=== PATIENT | male | born 1945 | race Caucasian/White ===

== ENCOUNTER 2016-07-01 10:43 | Day surgery (SDC) | payer MEDICARE, OTHER ==
[2016-07-01] VITALS (10 sets, daily range): BP systolic 100–143; BP diastolic 56–74; PULSE 42–79; RESP 14–23; TEMP 97.2–97.6; O2SAT 95–100; Ht 168.9 cm; Wt 78.3 kg
[~2016-07-01] VITALS: Ht 168.9 cm; Wt 78.3 kg
[~2016-07-01 10:43] MED LIST: ASPI-730 PO; ATOR40TA20 PO; CEFAZOLIN 1 GRAM INJECTION IV ONE; FENO160T6 PO; FINA5TAB40 PO; HYDR-4009 PO; LIDOCAINE 1% (10mg/ml) 2ml SDV INJ ONE; METO25TA6 PO; MULT1CAP34 PO; NITR0.4T38 SL; NORMAL SALINE 1,000 ML IV ONE; NYST10007 TP; POTA20TA87 PO; SILD50TA PO; TRIA15CR3 TOP; VITA100T5
--- OUTSIDE RECORDS SUMMARY | 2016-07-01 10:48 | XMS REPORT | Referral Summary ---
Author Author [facility], [facility] Care Organization [facility] Address Unknown Phone Unavailable Care Team Providers Care Pool Technician Name Role Phone Deena Juárez Primary Care Physician [phone] Encounter VC Date(s): 08/08/15 - 08/08/15 [facility], [address] [place] [id number] Discharge Disposition: 01-Home or Self Care Attending Physician: Yoni Valdez PA-C Admitting Physician: Yoni Valdez PA-C Vital Signs Most recent to 1 oldest [Reference Range]: Temperature Tympanic 36.3 degC [36.6-38.1 degC] *LOW* (08/08/15 2:40 PM) Peripheral Pulse 55 bpm Rate [60-100 bpm] *LOW* (08/08/15 2:40 PM) Blood Pressure 138/78 mmHg [90-140/60-90 mmHg] (08/08/15 2:40 PM) SpO2 98 % (08/08/15 2:40 PM) Problem List Condition Effective Dates Status Health Status Informant 2 Vessel BUTLER to 1995 Resolved LAD(Confirmed) Allergic rhinitis Active (disorder)(Confirmed ) Allergic Resolved rhinitis(Confirmed) Allergies(Confirmed) Resolved Anxiety state Active (finding)(Confirmed) Anxiety(Confirmed)1 Resolved Atrial Active fibrillation(Confirm ed) Benign prostatic Resolved hypertrophy(Confirme d) Bilat shoulder Resolved tendonitis(Confirmed ) Blood clots in Resolved urine(Confirmed) Chronic kidney Active disease stage 3 (disorder)(Confirmed ) CKD 3(Confirmed) Resolved Coronary Active arteriosclerosis (disorder)(Confirmed ) Coronary artery Resolved disease(Confirmed)2 Generalized Active osteoarthritis (disorder)(Confirmed ) Depression(Confirmed Resolved ) Depression(Confirmed Active ) Dyslipidemia(Confirm Resolved ed) Erectile Resolved dysfunction(Confirme d) Gastroesophageal Active reflux disease (disorder)(Confirmed ) GERD(Confirmed) Resolved Hay fever(Confirmed) Resolved High Resolved cholesterol(Confirme d) High Resolved trygylcerides(Confir med) Hyperlipidemia(Confi Active rmed) Hyperlipidemia(Confi Resolved rmed) Hypertrophic Resolved polyps(Confirmed) Erectile Active dysfunction(Confirme d) Impotence of organic Active origin (disorder)(Confirmed ) OA Active (osteoarthritis)(Con firmed) Osteoarthritis Resolved hands(Confirmed) preDM (fasting 07/26/10 Resolved hypergylcemia)(Confi rmed) Prostatism(Confirmed Resolved ) Renal Resolved disease(Confirmed) Renal Resolved insufficiency(Confir med) Shoulder Active tendinitis(Confirmed ) 1Hospitalization- at [place] 2Dr. Reuss S/P AMI Allergies, Adverse Reactions, Alerts No Known Allergies Medications aspirin 325 mg oral tablet 1 tabs, Oral, Daily, 0 Refill(s) Start Date: 09/21/13 Status: Ordered finasteride 5 mg oral tablet 5 mg 1 tabs, Oral, Daily, # 90 tabs, 4 Refill(s), Pharmacy: [facility], 1 tabs Oral Daily Start Date: 11/18/14 Status: Ordered glucosamine 1 tabs, Oral, Daily, 0 Refill(s) Start Date: 09/21/13 Status: Ordered Lipitor 40 mg oral tablet 40 mg 1 tabs, Oral, Bedtime (once a day), fax to [facility], # 90 tabs, 3 Refill( s), [facility]: [facility], 1 tabs Oral Bedtime (once a day),Instr:fax to [facility] Start Date: 04/19/15 Status: Ordered meloxicam 15 mg oral tablet 15 mg 1 tabs, Oral, Daily, # 30 tabs, 0 Refill(s), Pharmacy: [id number], 1 tabs Oral Daily Start Date: 07/26/15 Status: Ordered multivitamin Daily, 0 Refill(s) Start Date: 09/22/13 Status: Ordered nitroglycerin 0.4 mg sublingual tablet 1 tabs, SubLingual, q5min, as needed for chest pain, # 100 tabs, 0 Refill(s) Start Date: 09/21/13 Status: Ordered nystatin 100,000 units/g topical powder 1 linda, Topical, BID, # 15 g, 1 Refill(s), [facility]acy: [facility] Start Date: 12/05/14 Stop Date: 12/06/15 Status: Ordered Prevident linda, Topical, Bedtime (once a day), 0 Refill(s) Start Date: 09/22/13 Status: Ordered triamcinolone 0.1% topical cream 1 linda, Topical, BID, # 30 g, 2 Refill(s), [facility]acy: [facility] Start Date: 10/05/14 Status: Ordered Triglide 160 mg oral tablet 160 mg 1 tabs, Oral, Daily, # 90 tabs, 3 Refill(s), [facility]acy: [facility], 1 tabs Oral Daily,x90 days Start Date: 04/19/15 Stop Date: 04/13/16 Status: Ordered Viagra 50 mg oral tablet See Instructions, take one tablet as needed 1 hour before sexual activity, # 18 tabs, 2 Refill(s), [facility]acy: [facility], take one tablet as needed ; 1 hour before sexual activity Start Date: 07/14/15 Status: Ordered Results No data available for this section Immunizations Vaccine Date Refusal Reason tetanus/diphth/pertuss (Tdap) adult/adol 09/16/12 hepatitis A-hepatitis B vaccine 10/07/07 hepatitis A-hepatitis B vaccine 02/27/01 hepatitis A-hepatitis B vaccine 06/25/00 hepatitis B pediatric vaccine 05/20/07 influenza virus vaccine, inactivated 12/08/14 influenza virus vaccine, inactivated 12/24/13 influenza virus vaccine, live 01/06/13 influenza virus vaccine, live 12/09/11 pneumococcal 23-polyvalent vaccine 09/16/12 pneumococcal 23-polyvalent vaccine 07/21/96 typhoid vaccine, live 06/25/00 zoster vaccine live 09/16/12 Procedures Procedure Date Related Diagnosis Body Site Colonoscopy1 01/16/15 TURP - Transurethral resection of prostate2 02/25/13 CABG - Coronary artery bypass graft 05/1995 Adenoidectomy 1950 Tonsillectomy 1950 Colonoscopy3 1patient reports 2DR [place] [id number] 2010 hypertrophic polyps Social History Social History Type Response Smoking Status Never smoker Assessment and Plan No data available for this section
--- OUTSIDE RECORDS SUMMARY | 2016-07-01 10:48 | XMS REPORT | Referral Summary ---
Author Author [facility], Family Medicine Organization [facility] Address Unknown Phone Unavailable Care Team Providers Care Bag Repairer Name Role Phone Deena Juárez Primary Care Physician [phone] Encounter VC Date(s): 10/26/14 - 10/26/14 [facility], [address] [place] [address] Discharge Diagnosis: Coronary arteriosclerosis Discharge Diagnosis: Degenerative joint disease involving multiple joints Discharge Diagnosis: BPH loc w/o ur obs/LUTS Discharge Diagnosis: ROUTINE GENERAL MEDICAL EXAMINATION AT A HEALTH CARE FACILITY Discharge Disposition: 01-Home or Self Care Attending Physician: Tino Juárez MD Admitting Physician: Tino Juárez MD Vital Signs Most recent to 1 oldest [Reference Range]: Temperature Tympanic 36.0 degC [36.6-38.1 degC] *LOW* (10/26/14 10:53 AM) Peripheral Pulse 52 bpm Rate [60-100 bpm] *LOW* (10/26/14 10:53 AM) Respiratory Rate 14 br/min [14-20 br/min] (10/26/14 10:53 AM) Blood Pressure 128/70 mmHg [90-140/60-90 mmHg] (10/26/14 10:53 AM) Problem List Condition Effective Dates Status Health [...] med) Shoulder Active tendinitis(Confirmed ) 1Hospitalization- at [place] 2Dr. Hannah S/P AMI Allergies, Adverse Reactions, Alerts No Known Medication Allergies Medications aspirin 325 mg oral tablet 1 tabs, Oral, Daily, 0 Refill(s) Start Date: 09/21/13 Status: Ordered finasteride 5 mg oral tablet 5 mg 1 tabs, Oral, Daily, # 90 tabs, 4 Refill(s), Pharmacy: [facility], 1 tabs Oral Daily Start Date: 11/18/14 Status: Ordered glucosamine 1 tabs, Oral, Daily, 0 Refill(s) Start Date: 09/21/13 Status: Ordered Lipitor 40 mg oral tablet 40 mg 1 tabs, Oral, Bedtime (once a day), fax to [facility], # 90 tabs, 3 Refill( s), [facility]acy: [facility], 1 tabs Oral Bedtime (once a day),Instr:fax to [facility] Start Date: 04/19/15 Status: Ordered multivitamin Daily, 0 Refill(s) Start [...] # 30 g, 2 Refill(s), [facility]: [facility] Start Date: 10/05/14 Status: Ordered Triglide 160 mg oral tablet 160 mg 1 tabs, Oral, Daily, # 90 tabs, 3 Refill(s), [facility]: [facility], 1 tabs Oral Daily,x90 days Start Date: 04/19/15 Stop Date: 04/13/16 Status: Ordered Viagra 50 mg oral tablet See Instructions, take one tablet as needed 1 hour before sexual activity, # 18 tabs, 2 Refill(s) Start Date: 11/30/13 Status: Ordered Results No data available for [...] Procedures Procedure Date Related Diagnosis Body Site TURP - Transurethral resection of prostate1 02/25/13 CABG - Coronary artery bypass graft 05/1995 Adenoidectomy 1950 Tonsillectomy 1950 Colonoscopy2 1DR [place] [id number] 2010 hypertrophic polyps Social History Social History Type Response Smoking Status Never smoker Assessment and Plan Extracted from: Title: Ambulatory Patient Education Author: Tino Juárez MD Date: Family Medicine Benign Prostatic Hypertrophy The prostate gland is part of the reproductive system of men. A normal prostate is about the size and shape of a walnut. The prostate gland produces a fluid that is mixed with sperm to make semen. This gland surrounds the urethra and is located in front of the rectum and just below the bladder. The bladder is where urine is stored. The urethra is the tube through which urine passes from the bladder to get out of the body. The prostate grows as a man ages. An enlarged prostate not caused by cancer is called benign prostatic hypertrophy (BPH). An enlarged prostate can press on the urethra. This can make it harder to pass urine. In the early stages of enlargement, the bladder can get by with a narrowed urethra by forcing the urine through. If the problem gets worse, medical or surgical treatment may be required. This condition should be followed by your health care provider. The accumulation of urine in the bladder can cause infection. Back pressure and infection can progress to bladder damage and kidney (renal) failure. If needed, your health care provider may refer you to a specialist in kidney and prostate disease (urologist). CAUSES BPH is a common health problem in men older than 50 years. This condition is a normal part of aging. However, not all men will develop problems from this condition. If the enlargement grows away from the urethra, then there will not be any compression of the urethra and resistance to urine flow.If the growth is toward the urethra and compresses it, you will experience difficulty urinating. SYMPTOMS Not able to completely empty your bladder. Getting up often during the night to urinate. Need to urinate frequently during the day. Difficultly starting urine flow. Decrease in size and strength of your urine stream. Dribbling after urination. Pain on urination (more common with infection). Inability to pass urine. This needs immediate treatment. The development of a urinary tract infection. DIAGNOSIS These tests will help your health care provider understand your problem: A thorough history and physical examination. A urination history, with the number of times you urinate, the amounts of urine, the strength of the urine stream, and the feeling of emptiness or fullness after urinating. A postvoid bladder scan that measures any amount of urine that may remain in your bladder after you finish urinating. Digital rectal exam. In a rectal exam, your health care provider checks your prostate by putting a gloved, lubricated finger into your rectum to feel the back of your prostate gland. This exam detects the size of your gland and abnormal lumps or growths. Exam of your urine (urinalysis). Prostate specific antigen (PSA) screening. This is a blood test used to screen for prostate cancer. Rectal ultrasonography. This test uses sound waves to electronically produce a picture of your prostate gland. TREATMENT Once symptoms begin, your health care provider will monitor your condition. Of the men with this condition, one third will have symptoms that stabilize, one third will have symptoms that improve, and one third will have symptoms that progress in the first year. Mild symptoms may not need treatment. Simple observation and yearly exams may be all that is required. Medicines and surgery are options for more severe problems. Your health care provider can help you make an informed decision for what is best. Two classes of medicines are available for relief of prostate symptoms: Medicines that shrink the prostate. This helps relieve symptoms. These medicines take time to work, and it may be months before any improvement is seen. Uncommon side effects include problems with sexual function. Medicines to relax the muscle of the prostate. This also relieves the obstruction by reducing any compression on the urethra.This group of medicines work much faster than those that reduce the size of the prostate gland. Usually, one can experience improvement in days to weeks.. Side effects can include dizziness, fatigue, lightheadedness, and retrograde ejaculation (diminished volume of ejaculate). Several types of surgical treatments are available for relief of prostate symptoms: Transurethral resection of the prostate (TURP)In this treatment, an instrument is inserted through opening at the tip of the penis. It is used to cut away pieces of the inner core of the prostate. The pieces are removed through the same opening of the penis. This removes the obstruction and helps get rid of the symptoms. Transurethral incision (TUIP)In this procedure, small cuts are made in the prostate. This lessens the prostates pressure on the urethra. Transurethral microwave thermotherapy (TUMT)This procedure uses microwaves to create heat. The heat destroys and removes a small amount of prostate tissue. Transurethral needle ablation (TUNA)This is a procedure that uses radio frequencies to do the same as TUMT. Interstitial laser coagulation (ILC)This is a procedure that uses a laser to do the same as TUMT and TUNA. Transurethral electrovaporization (TUVP)This is a procedure that uses electrodes to do the same as the procedures listed above. SEEK MEDICAL CARE IF: You develop a fever. There is unexplained back pain. Symptoms are not helped by medicines prescribed. You develop side effects from the medicine you are taking. Your urine becomes very dark or has a bad smell. Your lower abdomen becomes distended and you have difficulty passing your urine. SEEK IMMEDIATE MEDICAL CARE IF: You are suddenly unable to urinate. This is an emergency. You should be seen immediately. There are large amounts of blood or clots in the urine. Your urinary problems become unmanageable. You develop lightheadedness, severe dizziness, or you feel faint. You develop moderate to severe low back or flank pain. You develop chills or fever. Document Released: 02/24/2006 Document Revised: 03/01/2014 Document Reviewed: [employer] Patient Information 2015 [employer]. This information is not intended to replace advice given to you by your health care provider. Make sure you discuss any questions you have with your health care provider. No follow up information was provided. Extracted from: Title: Office Visit Note Author: Tino Juárez MD Date: 10/26/14 Assessment/Plan BPH loc w/o ur obs/LUTS Overall stable no change in current treatment. Continue to follow-up with Dr. Walsh. Coronary arteriosclerosis Overall stable no change in current treatment. Continue to follow-up with Dr. Morales. Degenerative joint disease involving multiple joints Chronic stable no change in current treatment recommended. He's had recent screening laboratory studies which look reasonable. He is up -to-date on vaccinations. His dementia screening is normal. He states active and follows a healthy lifestyle. I encouraged yearly follow-up here.
--- OUTSIDE RECORDS SUMMARY | 2016-07-01 10:48 | XMS REPORT | Referral Summary ---
Author Author [facility], [facility] Medicine Organization [facility] Address Unknown Phone Unavailable Care Team Providers Care Turf Grower Name Role Phone Deena Juárez Primary Care Physician [phone] Encounter VC Date(s): 03/20/16 - 03/20/16 [facility], [address] [place] [id number] Discharge Diagnosis: Enlarged testicle Discharge Disposition: 01-Home or Self Care Attending Physician: Tino Juárez MD Admitting Physician: Tino Juárez MD Vital Signs Most recent to 1 oldest [Reference Range]: Temperature Tympanic 37.2 degC [36.6-38.1 degC] (03/20/16 10:45 AM) Peripheral Pulse 60 bpm Rate [60-100 bpm] (03/20/16 10:45 AM) Respiratory Rate 14 br/min [14-20 br/min] (03/20/16 10:45 AM) Blood Pressure 120/70 mmHg [90-140/60-90 mmHg] (03/20/16 10:45 AM) Problem List Condition Effective Dates Status [...] arteriosclerosis (disorder)(Confirmed ) Coronary artery Resolved disease(Confirmed)2 Depression(Confirmed Resolved ) Depression(Confirmed Active ) Erectile Resolved dysfunction(Confirme d) Gastroesophageal Active reflux disease (disorder)(Confirmed ) GERD(Confirmed) Resolved Hay fever(Confirmed) Resolved High Resolved cholesterol(Confirme d) High Resolved trygylcerides(Confir med) Dyslipidemia(Confirm Resolved ed) Hyperlipidemia(Confi Active rmed) Hyperlipidemia(Confi Resolved rmed) Hypertrophic Resolved polyps(Confirmed) Erectile Active dysfunction(Confirme d) Impotence of organic Active origin (disorder)(Confirmed ) OA Active (osteoarthritis)(Con firmed) Osteoarthritis Resolved hands(Confirmed) Generalized Active osteoarthritis (disorder)(Confirmed ) preDM (fasting 07/26/10 Resolved hypergylcemia)(Confi rmed) Prostatism(Confirmed Resolved ) Renal Resolved disease(Confirmed) Renal Resolved insufficiency(Confir med) Shoulder Active tendinitis(Confirmed ) 1[facility]- at [place] [facility]I Allergies, Adverse Reactions, Alerts No Known Allergies Medications aspirin 325 mg oral tablet 1 tabs, Oral, Daily, 0 Refill(s) Start Date: 09/21/13 Status: Ordered atorvastatin 40 mg oral tablet See Instructions, TAKE 1 TABLET DAILY AT BEDTIME, # 90 tabs, 1 Refill(s), eRx: [facility], TAKE 1 TABLET DAILY AT BEDTIME Start Date: 01/23/16 Status: Ordered finasteride 5 mg oral tablet See Instructions, TAKE 1 TABLET DAILY, # 90 tabs, 1 Refill(s), eRx: [facility], TAKE 1 TABLET DAILY Start Date: 01/23/16 Status: Ordered nitroglycerin 0.4 mg sublingual tablet 1 tabs, SubLingual, q5min, as needed for chest pain, # 100 tabs, 0 Refill(s) Start Date: 09/21/13 Status: Ordered nystatin 100,000 units/g topical powder 1 linda, Topical, BID, # 30 g, 3 Refill(s), [facility] Start Date: 03/05/16 Status: Ordered nystatin 100,000 units/g topical powder 1 linda, Topical, BID, # 60 g, 0 Refill(s), [facility] Start Date: 08/14/15 Status: Ordered triamcinolone 0.1% topical cream 1 linda, Topical, BID, # 30 g, 2 Refill(s), Pharmacy: [facility] Start Date: 08/21/15 Status: Ordered Triglide 160 mg oral tablet 160 mg 1 tabs, Oral, Daily, # 90 tabs, 3 Refill(s), [facility]: [facility], dispense generic, 1 tabs Oral Daily,x90 days Start Date: 02/05/16 Stop Date: 01/30/17 Status: Ordered Viagra 50 mg oral tablet See Instructions, take one tablet as needed 1 hour before sexual activity, # 18 tabs, 2 Refill(s), [facility]: [facility], take one tablet as needed ; 1 hour before sexual activity Start Date: 07/14/15 Status: Ordered Results No data available for this section Immunizations Given and Recorded Vaccine Date Status Refusal Reason tetanus/diphth/pertuss (Tdap) adult/adol 09/16/12 Recorded hepatitis A-hepatitis B vaccine 10/07/07 Given hepatitis A-hepatitis B vaccine 02/27/01 Given hepatitis A-hepatitis B vaccine 06/25/00 Given hepatitis B pediatric vaccine 05/20/07 Recorded influenza virus vaccine, inactivated 01/24/16 Recorded influenza virus vaccine, inactivated 12/08/14 Recorded influenza virus vaccine, inactivated 12/24/13 Recorded influenza virus vaccine, live 01/06/13 Given influenza virus vaccine, live 12/09/11 Given pneumococcal 13-valent conjugate vaccine1 09/16/12 Given pneumococcal 23-polyvalent vaccine 09/16/12 Recorded pneumococcal 23-polyvalent vaccine 07/21/96 Recorded typhoid vaccine, live 06/25/00 Recorded zoster vaccine live 09/16/12 Given 1Result Comment: [09/30/2014 Uncharted] error Procedures Procedure Date Related Diagnosis Body Site Colonoscopy1 01/16/15 TURP - Transurethral resection of prostate2 02/25/13 CABG - Coronary artery bypass graft 05/1995 Adenoidectomy 1950 Tonsillectomy 1950 Colonoscopy3 1patient reports 2DR [place]A [id number] 2010 hypertrophic polyps Social History Social History Type Response Smoking Status Never smoker Assessment and Plan Extracted from: Title: Office Visit Note Author: Tino Juárez MD Date: 03/20/16 Assessment/Plan 1.Enlarged testicle I recommended further evaluation with a sonogram and will schedule that. He does see Dr. Walsh is a urologist and if necessary willget him involved.
--- OUTSIDE RECORDS SUMMARY | 2016-07-01 10:48 | XMS REPORT | Referral Summary ---
Author Author [facility], Family Medicine Organization [facility] Address Unknown Phone Unavailable Care Team Providers Care Rn Midwife Name Role Phone Deena Juárez Primary Care Physician [phone] Encounter VC Date(s): 10/30/15 - 10/30/15 [facility] [place], [address] [place] [id number] Discharge Disposition: 01-Home or Self Care Attending Physician: Tino Juárez MD Admitting Physician: Tino Juárez MD Vital Signs Most recent to 1 oldest [Reference Range]: Peripheral Pulse 44 bpm Rate [60-100 bpm] *LOW* (10/30/15 9:29 AM) Blood Pressure 152/84 mmHg [90-140/60-90 mmHg] *HI* (10/30/15 9:29 AM) Problem List Condition Effective Dates Status Health Status Informant 2 [facility] [place] to 1995 Resolved LAD(Confirmed) Allergic rhinitis [...] med) Shoulder Active tendinitis(Confirmed ) 1Hospitalization- at [place] 2Dr. Reusser S/P AMI Allergies, Adverse Reactions, Alerts No Known Allergies Medications aspirin 325 mg oral tablet 1 tabs, Oral, Daily, 0 Refill(s) Start Date: 09/21/13 Status: Ordered finasteride 5 mg oral tablet 5 mg 1 tabs, Oral, Daily, # 90 tabs, 4 Refill(s), Pharmacy: [facility], 1 tabs Oral Daily Start Date: 11/18/14 Status: Ordered Lipitor 40 mg oral tablet 40 mg 1 tabs, Oral, Bedtime (once a day), # 90 tabs, 0 Refill(s), Pharmacy: [facility], 1 tabs Oral Bedtime (once a day) Start Date: 08/21/15 Status: Ordered nitroglycerin 0.4 mg sublingual tablet 1 tabs, SubLingual, q5min, as needed for chest pain, # 100 tabs, 0 Refill(s) Start Date: 09/21/13 Status: Ordered nystatin 100,000 units/g topical powder 1 linda, Topical, BID, # 30 g, 1 Refill(s), Pharmacy: [facility] Start Date: 10/26/15 Stop Date: 10/25/16 Status: Ordered nystatin 100,000 units/g topical powder 1 linda, Topical, BID, # 60 g, 0 Refill(s), [facility]: [facility] Start Date: 08/14/15 Status: Ordered triamcinolone 0.1% topical cream 1 linda, Topical, BID, # 30 g, 2 Refill(s), Pharmacy: [facility] Start Date: 08/21/15 Status: Ordered Triglide 160 mg oral tablet 160 mg 1 tabs, Oral, Daily, # 90 tabs, 3 Refill(s), Pharmacy: [facility], 1 tabs Oral Daily,x90 days Start Date: [...] Tonsillectomy 1950 Colonoscopy3 1patient reports 2DR [place] [address] 2009 hypertrophic polyps Social History Social History Type Response Smoking Status Never smoker Assessment and Plan Extracted from: Title: Ambulatory Patient Education Author: Kavin Vences RN Date: 10/30/15 Gastroenterology Gastroesophageal Reflux Disease, Adult Gastroesophageal reflux disease (GERD) happens when acid from your stomach flows up into the esophagus. When acid comes in contact with the esophagus, the acid causes soreness (inflammation) in the esophagus. Over time, GERD may create small holes (ulcers) in the lining of the esophagus. CAUSES Increased body weight. This puts pressure on the stomach, making acid rise from the stomach into the esophagus. Smoking. This increases acid production in the stomach. Drinking alcohol. This causes decreased pressure in the lower esophageal sphincter (valve or ring of muscle between the esophagus and stomach), allowing acid from the stomach into the esophagus. Late evening meals and a full stomach. This increases pressure and acid production in the stomach. A malformed lower esophageal sphincter. Sometimes, no cause is found. SYMPTOMS Burning pain in the lower part of the mid-chest behind the breastbone and in the mid-stomach area. This may occur twice a week or more often. Trouble swallowing. Sore throat. Dry cough. Asthma-like symptoms including chest tightness, shortness of breath, or wheezing. DIAGNOSIS Your caregiver may be able to diagnose GERD based on your symptoms. In some cases, X-rays and other tests may be done to check for complications or to check the condition of your stomach and esophagus. TREATMENT Your caregiver may recommend ixyi-zou-vcmksyw or prescription medicines to help decrease acid production. Ask your caregiver before starting or adding any new medicines. HOME CARE INSTRUCTIONS Change the factors that you can control. Ask your caregiver for guidance concerning weight loss, quitting smoking, and alcohol consumption. Avoid foods and drinks that make your symptoms worse, such as: Caffeine or alcoholic drinks. Chocolate. Peppermint or mint flavorings. Garlic and onions. Spicy foods. [place] fruits, such as oranges, toni, or limes. Tomato-based foods such as sauce, chili, salsa, and pizza. Fried and fatty foods. Avoid lying down for the 3 hours prior to your bedtime or prior to taking a nap. Eat small, frequent meals instead of large meals. Wear loose-fitting clothing. Do not wear anything tight around your waist that causes pressure on your stomach. Raise the head of your bed 6 to 8 inches with wood blocks to help you sleep. Extra pillows will not help. Only take jjcb-amx-yymdeze or prescription medicines for pain, discomfort , or fever as directed by your caregiver. Do not take aspirin, ibuprofen, or other nonsteroidal anti-inflammatory drugs (NSAIDs). SEEK IMMEDIATE MEDICAL CARE IF: You have pain in your arms, neck, jaw, teeth, or back. Your pain increases or changes in intensity or duration. You develop nausea, vomiting, or sweating (diaphoresis). You develop shortness of breath, or you faint. Your vomit is green, yellow, black, or looks like coffee grounds or blood. Your stool is red, bloody, or black. These symptoms could be signs of other problems, such as heart disease, gastric bleeding, or esophageal bleeding. MAKE SURE YOU: Understand these instructions. Will watch your condition. Will get help right away if you are not doing well or get worse. This information is not intended to replace advice given to you by your health care provider. Make sure you discuss any questions you have with your health care provider. Document Released: 12/04/2005 Document Revised: 03/17/2015 Document Reviewed: [facility] Patient Information [address] [facility] [facility]. Geriatrics Fall Prevention and Home Safety Falls cause injuries and can affect all age groups. It is possible to use preventive measures to significantly decrease the likelihood of falls. There are many simple measures that can make your home safer and prevent falls. OUTDOORS Repair cracks and edges of walkways and driveways. Remove high doorway thresholds. Trim shrubbery on the main path into your home. Have good outside lighting. Clear walkways of tools, rocks, debris, and clutter. Check that handrails are not broken and are securely fastened. Both sides of steps should have handrails. Have leaves, snow, and ice cleared regularly. Use sand or salt on walkways during winter months. In the garage, clean up grease or oil spills. BATHROOM Install night lights. Install grab bars by the toilet and in the tub and shower. Use non-skid mats or decals in the tub or shower. Place a plastic non-slip stool in the shower to sit on, if needed. Keep floors dry and clean up all water on the floor immediately. Remove soap buildup in the tub or shower on a regular basis. Secure bath mats with non-slip, double-sided rug tape. Remove throw rugs and tripping hazards from the floors. BEDROOMS Install night lights. Make sure a bedside light is easy to reach. Do not use oversized bedding. Keep a telephone by your bedside. Have a firm chair with side arms to use for getting dressed. Remove throw rugs and tripping hazards from the floor. KITCHEN Keep handles on pots and pans turned toward the center of the stove. Use back burners when possible. Clean up spills quickly and allow time for drying. Avoid walking on wet floors. Avoid hot utensils and knives. Position shelves so they are not too high or low. Place commonly used objects within easy reach. If necessary, use a sturdy step stool with a grab bar when reaching. Keep electrical cables out of the way. Do not use floor jamaican or wax that makes floors slippery. If you must use wax, use non-skid floor wax. Remove throw rugs and tripping hazards from the floor. STAIRWAYS Never leave objects on stairs. Place handrails on both sides of stairways and use them. Fix any loose handrails. Make sure handrails on both sides of the stairways are as long as the stairs. Check carpeting to make sure it is firmly attached along stairs. Make repairs to worn or loose carpet promptly. Avoid placing throw rugs at the top or bottom of stairways, or properly secure the rug with carpet tape to prevent slippage. Get rid of throw rugs, if possible. Have an control equipment electrician put in a light switch at the top and bottom of the stairs. OTHER FALL PREVENTION TIPS Wear low-heel or rubber-soled shoes that are supportive and fit well. Wear closed-toe shoes. When using a stepladder, make sure it is fully opened and both spreaders are firmly locked. Do not climb a closed stepladder. Add color or contrast paint or tape to grab bars and handrails in your home. Place contrasting color strips on first and last steps. Learn and use mobility aids as needed. Turn on lights to avoid dark areas. Immediately replace light bulbs that burn out. Get light switches that glow. Arrange furniture to create clear pathways. Keep furniture in the same place. Firmly attach carpet with non-skid or double-sided tape. Eliminate uneven floor surfaces. Select a carpet pattern that does not visually hide the edge of steps. Be aware of all pets. OTHER HOME SAFETY TIPS Set the water temperature for 120F (48.8C). Keep emergency numbers on or near the telephone. Keep smoke detectors on every level of the home and near sleeping areas. This information is not intended to replace advice given to you by your health care provider. Make sure you discuss any questions you have with your health care provider. Document Released: 02/14/2003 Document Revised: 03/17/2015 Document Reviewed: Exit[employer] Patient Information 2016 [place], [facility]. No follow up information was provided.
--- OUTSIDE RECORDS SUMMARY | 2016-07-01 10:48 | XMS REPORT | Referral Summary ---
Author Organization Unknown Address Unknown Phone Unavailable Care Team Providers Care Precision Structural Metal Fitter Name Role Phone Padilla Mobley JR Primary Care Physician [phone] Encounter VC Date(s): 05/18/14 - 05/18/14 [facility], E , Dermatology [address], [place] [address] Discharge Diagnosis: Seborrheic keratosis, inflamed Discharge Diagnosis: Intertrigo Discharge Diagnosis: Actinic keratoses Discharge Diagnosis: Capillary hemangioma Discharge Diagnosis: Seborrheic keratosis Discharge Diagnosis: Solar degeneration Discharge Disposition: Home or Self Care Attending Physician: Eddi Mejia MD Admitting Physician: Eddi Mejia MD Referring Physician: Bladimir Mobley JR, MD, FAAFP Vital Signs No data available for this section Problem List Condition Effective Dates Status Health Status Informant 2 [facility] [place] to 1995 Resolved LAD(Confirmed) Allergic Resolved rhinitis(Confirmed) Allergic rhinitis Active (disorder)(Confirmed ) Allergies(Confirmed) Resolved Anxiety(Confirmed)1 Resolved Anxiety state Active (finding)(Confirmed) Atrial Active fibrillation(Confirm ed) Benign prostatic Resolved [...] cholesterol(Confirme d) High Resolved trygylcerides(Confir med) Hyperlipidemia(Confi Resolved rmed) Hyperlipidemia(Confi Active rmed) Hypertrophic Resolved polyps(Confirmed) Erectile Active dysfunction(Confirme d) Impotence of organic Active origin (disorder)(Confirmed ) OA Active (osteoarthritis)(Con firmed) Osteoarthritis Resolved hands(Confirmed) preDM (fasting 07/26/10 Resolved hypergylcemia)(Confi rmed) Prostatism(Confirmed Resolved ) Renal Resolved disease(Confirmed) Renal Resolved insufficiency(Confir med) Shoulder Active tendinitis(Confirmed ) 1Hospitalization- at [place] 2Dr. Reusser S/P AMI Allergies, Adverse Reactions, Alerts No Known Medication Allergies Medications aspirin 325 mg oral tablet 1 tabs, Oral, Daily, 0 Refill(s) Start Date: 09/21/13 Status: Ordered clindamycin 1% topical lotion 1 linda, Topical, BID, # 60 mL, 4 Refill(s), [id number] Start Date: 11/26/13 Stop Date: 02/04/14 Status: Ordered finasteride 5 mg oral tablet See Instructions, TAKE 1 TABLET DAILY, # 90 tabs, 2 Refill(s), [facility]: [facility], TAKE 1 TABLET DAILY Special Instructions: TAKE 1 TABLET DAILY Start Date: 03/28/14 Status: Ordered glucosamine 1 tabs, Oral, Daily, 0 Refill(s) Start Date: 09/21/13 Status: Ordered Lipitor 40 mg oral tablet 1 tabs, Oral, Bedtime (once a day), fax to [facility], # 90 tabs, 3 Refill(s) Special Instructions: fax to [facility] Start Date: 01/31/14 Status: Ordered multivitamin Daily, 0 Refill(s) Start Date: 09/22/13 Status: Ordered nitroglycerin 0.4 mg sublingual tablet 1 tabs, SubLingual, q5min, as needed for chest pain, # 100 tabs, 0 Refill(s) Start Date: 09/21/13 Status: Ordered omeprazole 20 mg oral delayed release tablet 1 tabs, Oral, Daily, 0 Refill(s) Start Date: 09/21/13 Status: Ordered Prevident linda, Topical, Bedtime (once a day), 0 Refill(s) Start Date: 09/22/13 Status: Ordered promethazine-codeine 6.25 mg-10 mg/5 mL oral syrup 5 mL, Oral, q4hr, as needed for cough, # 120 mL, 0 Refill(s), other reason (Rx) Start Date: 3/3/15 Stop Date: 05/25/14 Status: Ordered Triglide 160 mg oral tablet 1 tabs, Oral, Daily, # 90 tabs, 3 Refill(s), 1 tabs Oral Daily Start Date: 04/18/14 Stop Date: 04/13/15 Status: Ordered Viagra 50 mg oral tablet See Instructions, take one tablet as needed 1 hour before sexual activity, # 18 tabs, 2 Refill(s) Special Instructions: take one tablet as needed 1 hour before sexual activity Start Date: 11/30/13 Status: Ordered Results No data available for this section Immunizations Vaccine Date Refusal Reason tetanus/diphth/pertuss (Tdap) adult/adol 09/16/12 hepatitis A-hepatitis B vaccine 10/07/07 hepatitis A-hepatitis B vaccine 02/27/01 hepatitis A-hepatitis B vaccine 06/25/00 hepatitis B pediatric vaccine 05/20/07 influenza virus vaccine, live 01/06/13 influenza virus vaccine, live 12/09/11 pneumococcal 13-valent conjugate vaccine 09/16/12 pneumococcal 23-polyvalent vaccine 07/21/96 typhoid vaccine, live 06/25/00 zoster vaccine live 09/16/12 Procedures Procedure Date Related Diagnosis Body Site Destruction (eg, laser surgery, 05/18/14 electrosurgery, cryosurgery, chemosurgery, surgical curettement), premalignant lesions (eg, actinic keratoses); first lesion Destruction (eg, laser surgery, 05/18/14 electrosurgery, cryosurgery, chemosurgery, surgical curettement), premalignant lesions (eg, actinic keratoses); second through 14 lesions, each (List separately in addition to code for first lesion) TURP - Transurethral resection of prostate1 02/25/13 CABG - Coronary artery bypass graft 05/1995 Adenoidectomy 1950 Tonsillectomy 1950 Colonoscopy2 1DR [place] 32043 2010 hypertrophic polyps Social History Social History Type Response Smoking Status Never smoker Assessment and Plan Extracted from: Title: Office Visit Note Author: Eddi Mejia MD Date: 05/18/14 Assessment/Plan Actinic keratoses Capillary hemangioma Intertrigo Seborrheic keratosis Seborrheic keratosis, inflamed Solar degeneration
--- OUTSIDE RECORDS SUMMARY | 2016-07-01 10:48 | XMS REPORT | Referral Summary ---
Author Author [facility], Family Medicine Organization [facility] Address Unknown Phone Unavailable Care Team Providers Care Crop Farm Helper Name Role Phone Deena Juárez Primary Care Physician [phone] Encounter Date(s): 04/17/16 - 04/17/16 [facility], [address] [place] [id number] Discharge Diagnosis: Coronary arteriosclerosis Discharge Diagnosis: Dyspnea on exertion Discharge Diagnosis: Mixed hyperlipidemia Discharge Diagnosis: Right inguinal hernia Discharge Diagnosis: Impotence of organic origin Discharge Disposition: 01-Home or Self Care Attending Physician: Tino Juárez MD Admitting Physician: Tino Juárez MD Vital Signs Most recent to 1 oldest [Reference Range]: Temperature Tympanic 35.8 degC [36.6-38.1 degC] *LOW* (04/17/16 8:34 AM) Peripheral Pulse 52 bpm Rate [60-100 bpm] *LOW* (04/17/16 8:34 AM) Respiratory Rate 20 br/min [14-20 br/min] (04/17/16 8:34 AM) Blood Pressure 130/72 mmHg [90-140/60-90 mmHg] (04/17/16 8:34 AM) Problem List Condition Effective Dates Status [...] med) Shoulder Active tendinitis(Confirmed ) 1Hospitalization- at [place] 2Dr. [facility] S/P AMI Allergies, Adverse Reactions, Alerts No Known Medication Allergies Substance Reaction Severity Status Sutures1 Active 1patient states silk sutures Medications aspirin 325 mg oral tablet 1 tabs, Oral, Daily, 0 Refill(s) Start Date: 09/21/13 Status: Ordered atorvastatin 40 mg oral tablet See Instructions, TAKE 1 TABLET DAILY AT BEDTIME, # 90 tabs, 1 Refill(s), eRx: [facility], TAKE 1 TABLET DAILY AT BEDTIME Start Date: 01/23/16 Status: Ordered finasteride 5 mg oral tablet See Instructions, TAKE 1 TABLET DAILY, # 90 tabs, 1 Refill(s), eRx: [facility], TAKE 1 TABLET DAILY Start Date: 01/23/16 Status: Ordered nitroglycerin 0.4 mg sublingual tablet 1 tabs, SubLingual, q5min, as needed for chest pain, # 100 tabs, 0 Refill(s) Start Date: 09/21/13 Status: Ordered nystatin 100,000 units/g topical powder 1 linda, Topical, BID, # 30 g, 3 Refill(s), [facility]acy: [facility] Start Date: 03/05/16 Status: Ordered nystatin 100,000 units/g topical powder 1 linda, Topical, BID, # 60 g, 0 Refill(s), Pharmacy: [facility] Start Date: 08/14/15 Status: Ordered triamcinolone 0.1% topical cream 1 linda, Topical, BID, # 30 g, 2 Refill(s), [facility] Start Date: 08/21/15 Status: Ordered Triglide 160 mg oral tablet 160 mg 1 tabs, Oral, Daily, # 90 tabs, 3 Refill(s), Pharmacy: [facility], dispense generic, 1 tabs Oral Daily,x90 days [...] Tonsillectomy 1950 Colonoscopy3 1patient reports 2DR [place] [address]609 2010 hypertrophic polyps Social History Social History Type Response Smoking Status Never smoker Assessment and Plan Extracted from: Title: Office Visit Note Author: Tino Juárez MD Date: 04/17/16 Assessment/Plan 1.Coronary arteriosclerosis This appears to be chronic and stable. With his dyspnea on exertion I do think further evaluation is warranted and he is seeing his ranch cook for thatin the next week. If he has further problems or concerns he'll let us know. Ordered: Office Visit Level 4 Est 17707 2.Impotence of organic origin Chronic stable no change in current treatment. Ordered: Office Visit Level 4 Est 81946 3.Dyspnea on exertion Further evaluation withcardiology isencouraged. We did discuss the fact that there could be some underlying COPD or bronchospasm occurring especially in light of the fact thatcold weather seems to exacerbate the symptoms. If hiscardiology evaluation is normal we may consider spirometry. Ordered: Office Visit Level 4 Est [id number] 4.Mixed hyperlipidemia Chronic stable no change in current treatment. Follow-up in 6 months with fasting lab. Ordered: Office Visit Level 4 Est [id number] 5.Right inguinal hernia Scheduled for surgical treatmentcoming up later this month. Ordered: Office Visit Level 4 Est [id number]
--- OUTSIDE RECORDS SUMMARY | 2016-07-01 10:48 | XMS REPORT | Referral Summary ---
Author Author [facility], [facility] Medicine Organization [facility] Address Unknown Phone Unavailable Care Team Providers Care Expert Witness Name Role Phone Deena Juárez Primary Care Physician [phone] Encounter VC Date(s): 07/26/15 - 07/26/15 [facility] [address] [place] [address] Discharge Diagnosis: Piriformis syndrome Discharge Diagnosis: Viral URI Discharge Disposition: 01-Home or Self Care Attending Physician: Tino Juárez MD Admitting Physician: Tino Juárez MD Vital Signs Most recent to 1 oldest [Reference Range]: Temperature Tympanic 36.9 degC [36.6-38.1 degC] (07/26/15 8:46 AM) Peripheral Pulse 76 bpm Rate [60-100 bpm] (07/26/15 8:46 AM) Respiratory Rate 16 br/min [14-20 br/min] (07/26/15 8:46 AM) Blood Pressure 120/64 mmHg [90-140/60-90 mmHg] (07/26/15 8:46 AM) Problem List Condition Effective Dates Status Health Status Informant 2 [facility] [place] to 1995 Resolved LAD(Confirmed) Allergic rhinitis [...] med) Shoulder Active tendinitis(Confirmed ) 1Hospitalization- at [place] 2Dr. Reusser S/P AMI Allergies, Adverse Reactions, Alerts No Known Medication Allergies Medications aspirin 325 mg oral tablet 1 tabs, Oral, Daily, 0 Refill(s) Start Date: 09/21/13 Status: Ordered finasteride 5 mg oral tablet 5 mg 1 tabs, Oral, Daily, # 90 tabs, 4 Refill(s), Pharmacy: [facility], 1 tabs Oral Daily Start [...] Daily, # 30 tabs, 0 Refill(s), Pharmacy: [id number], 1 tabs Oral Daily Start [...] Tonsillectomy 1950 Colonoscopy3 1patient reports 2DR [place] [address]167 2010 hypertrophic polyps Social History Social History Type Response Smoking Status Never smoker Assessment and Plan Extracted from: Title: Office Visit Note Author: Tino Juárez MD Date: 07/26/15 Assessment/Plan 1.Piriformis syndrome He is tender over the right piriformis area. I've recommended meloxicam 15 mg a dayfor the next 10-14 days. If not improving consider adding physical therapy. No major restrictions in activity at this time. He'll keep me posted on how he's doing. Ordered: Office Visit Level 3 Est 66369 2.Viral URI Reassurance. Warm salt water gargles may be beneficial. If symptoms progress or worsen or further problems develop follow-up. Ordered: Office Visit Level 3 Est [id number] Orders: meloxicam, 15 mg 1 tabs, Oral, Daily, # 30 tabs, 0 Refill(s), Pharmacy : [id number], 1 tabs Oral Daily
--- OUTSIDE RECORDS SUMMARY | 2016-07-01 10:48 | XMS REPORT | Referral Summary ---
Author Author [facility] Organization [facility] Address Unknown Phone Unavailable Care Team Providers Care Aged Or Disabled Carer Name Role Phone Deena Juárez Primary Care Physician [phone] Encounter VC Date(s): 04/05/16 - 04/05/16 [facility] [address] [place] [address] [place] [id number] Discharge Diagnosis: Right inguinal hernia Discharge Disposition: 01-Home or Self Care Attending Physician: Daniel Troy MD Admitting Physician: Daniel Troy MD Referring Physician: Tino Juárez MD Vital Signs Most recent to 1 oldest [Reference Range]: Temperature Tympanic 36.4 degC [36.6-38.1 degC] *LOW* (04/05/16 10:13 AM) Peripheral Pulse 62 bpm Rate [60-100 bpm] (04/05/16 10:13 AM) Blood Pressure 118/68 mmHg [90-140/60-90 mmHg] (04/05/16 10:13 AM) SpO2 98 % (04/05/16 10:13 AM) Problem List Condition Effective Dates Status [...] med) Shoulder Active tendinitis(Confirmed ) 1Hospitalization- at [place] 2Dr. Reusser S/P AMI Allergies, Adverse Reactions, [...] 30 g, 3 Refill(s), [facility] Start Date: 03/05/16 Status: Ordered nystatin 100,000 units/g topical powder 1 linda, Topical, BID, # 60 g, 0 Refill(s), Pharmacy: [facility] Start Date: 08/14/15 Status: Ordered triamcinolone 0.1% topical cream 1 linda, Topical, BID, # 30 g, 2 Refill(s), Pharmacy: [facility] Start Date: 08/21/15 Status: Ordered [...] Tonsillectomy 1950 Colonoscopy3 1patient reports 2DR [place] [address] 2010 hypertrophic polyps Social History Social History Type Response Smoking Status Never smoker Assessment and Plan Extracted from: Title: Ambulatory Patient Education Author: Daniel Troy MD Date: Emergency Medicine Hernia, Adult A hernia is the bulging of an organ or tissue through a weak spot in the muscles of the abdomen (abdominal wall). Hernias develop most often near the navel or groin. There are many kinds of hernias. Common kinds include: Femoral hernia. This kind of hernia develops under the groin in the upper thigh area. Inguinal hernia. This kind of hernia develops in the groin or scrotum. Umbilical hernia. This kind of hernia develops near the navel. Hiatal hernia. This kind of hernia causes part of the stomach to be pushed up into the chest. Incisional hernia. This kind of hernia bulges through a scar from an abdominal surgery. CAUSES This condition may be caused by: Heavy lifting. Coughing over a long period of time. Straining to have a bowel movement. An incision made during an abdominal surgery. A defect (congenital defect). Excess weight or obesity. Smoking. Poor nutrition. Cystic fibrosis. Excess fluid in the abdomen. Undescended testicles. SYMPTOMS Symptoms of a hernia include: A lump on the abdomen. This is the first sign of a hernia. The lump may become more obvious with standing, straining, or coughing. It may get bigger over time if it is not treated or if the condition causing it is not treated. Pain. A hernia is usually painless, but it may become painful over time if treatment is delayed. The pain is usually dull and may get worse with standing or lifting heavy objects. Sometimes a hernia gets tightly squeezed in the weak spot (strangulated) or stuck there (incarcerated) and causes additional symptoms. These symptoms may include: Vomiting. Nausea. Constipation. Irritability. DIAGNOSIS A hernia may be diagnosed with: A physical exam. During the exam your health care provider may ask you to cough or to make a specific movement, because a hernia is usually more visible when you move. Imaging tests. These can include: X-rays. Ultrasound. CT scan. TREATMENT A hernia that is small and painless may not need to be treated. A hernia that is large or painful may be treated with surgery. Inguinal hernias may be treated with surgery to prevent incarceration or strangulation. Strangulated hernias are always treated with surgery, because lack of blood to the trapped organ or tissue can cause it to . Surgery to treat a hernia involves pushing the bulge back into place and repairing the weak part of the abdomen. HOME CARE INSTRUCTIONS Avoid straining. Do not lift anything heavier than 10 lb (4.5 kg). Lift with your leg muscles, not your back muscles. This helps avoid strain. When coughing, try to cough gently. Prevent constipation. Constipation leads to straining with bowel movements, which can make a hernia worse or cause a hernia repair to break down. You can prevent constipation by: Eating a high-fiber diet that includes plenty of fruits and vegetables. Drinking enough fluids to keep your urine clear or pale yellow. Aim to drink 68 glasses of water per day. Using a stool softener as directed by your health care provider. Lose weight, if you are overweight. Do not use any tobacco products, including cigarettes, chewing tobacco, or electronic cigarettes. If you need help quitting, ask your health care provider. Keep all follow-up visits as directed by your health care provider. This is important. Your health care provider may need to monitor your condition. SEEK MEDICAL CARE IF: You have swelling, redness, and pain in the affected area. Your bowel habits change. SEEK IMMEDIATE MEDICAL CARE IF: You have a fever. You have abdominal pain that is getting worse. You feel nauseous or you vomit. You cannot push the hernia back in place by gently pressing on it while you are lying down. The hernia: Changes in shape or size. Is stuck outside the abdomen. Becomes discolored. Feels hard or tender. This information is not intended to replace advice given to you by your health care provider. Make sure you discuss any questions you have with your health care provider. Document Released: 02/24/2006 Document Revised: 03/17/2015 Document Reviewed: [employer] Patient Education 2016 [employer] No follow up information was provided. Extracted from: Title: Office Visit Note Author: Daniel Troy MD Date: 04/05/16 Assessment/Plan 1.Right inguinal hernia Ordered: Basic Metabolic Panel CBC Hemogram Office Visit Level 4 New [address]884 Plan: Right inguinal herniorrhaphyfollowingcardiac clearance. I did review the patient's chart includingtesticularultrasound from March 22, 2016.Testicular ultrasound was unremarkable with exception of a3 mm right epididymal cyst. There was a question of "bulging" without solidon the rightsuggestive of a hernia.I informed the patientthat upon physical examination he is found to have evidence for a right inguinal hernia.The hernia does appear to be causing him intermittent episodes of discomfort.It was therefore my recommendation that we should proceed with elective repair.I spent a fair amount of time discussing hernias with the patient. I did discuss in detail with the patient what aninguinal herniorrhaphy with mesh entailed and its associated risks including but not inclusive of bleeding and infection, as well as potential for recurrence. Patient was to see cardiology andonce cardiac clearance had been obtainedhe' ll be scheduled to undergo right inguinal herniorrhaphywith potential incorporation of mesh.
--- OUTSIDE RECORDS SUMMARY | 2016-07-01 10:49 | XMS REPORT | Referral Summary ---
Author Organization Unknown Address Unknown Phone Unavailable Care Team Providers Care Fur Mixer Name Role Phone Padilla Mobley JR Primary Care Physician [phone] Encounter VC Date(s): 05/10/14 - 05/10/14 [facility], [address] [place] [address] Discharge Diagnosis: Acute URI Discharge Diagnosis: Cough Discharge Diagnosis: Chronic kidney disease stage 3 (disorder) Discharge Diagnosis: Coronary arteriosclerosis (disorder) Discharge Disposition: Home or Self Care Attending Physician: Bobo Hurst MD Admitting Physician: Bobo Hurst MD Referring Physician: Bladimir Mobley JR, MD, FAAFP Vital Signs Most recent to 1 oldest [Reference Range]: Temperature Tympanic 36.4 degC [36.6-38.1 degC] *LOW* (05/10/14 7:07 PM) Apical Heart Rate 50 bpm [60-100 bpm] *LOW* (05/10/14 7:07 PM) Blood Pressure 126/78 mmHg [90-140/60-90 mmHg] (05/10/14 7:07 PM) Most recent to 1 oldest [Reference Range]: SpO2 99 % (05/10/14 7:07 PM) Problem List Condition Effective Dates Status [...] med) Shoulder Active tendinitis(Confirmed ) 1Hospitalization- at [place] 2Dr. Recarrie S/P AMI Allergies, Adverse Reactions, Alerts No Known Medication Allergies Medications aspirin 325 mg oral tablet 1 tabs, Oral, Daily, 0 Refill(s) Start Date: 09/21/13 Status: Ordered clindamycin 1% topical lotion 1 linda, Topical, BID, # 60 mL, 4 Refill(s), Pharmacy: [id number] Start Date: 11/26/13 Stop Date: 02/04/14 Status: Ordered finasteride 5 mg oral tablet See Instructions, TAKE 1 TABLET DAILY, # 90 tabs, 2 Refill(s), Pharmacy: [facility], TAKE 1 TABLET DAILY Special [...] 09/21/13 Status: Ordered nystatin 100,000 units/g topical cream linda, Topical, TID, apply small amount to skin twice a day, 0 Refill(s) Special Instructions: apply small amount to skin twice a day Start Date: 09/21/13 Status: Ordered omeprazole 20 mg oral delayed release tablet 1 tabs, Oral, Daily, 0 Refill(s) Start Date: 09/21/13 Status: Ordered predniSONE 20 mg oral tablet 1 tabs, Oral, Daily, X 5 days, # 5 tabs, 0 Refill(s), Pharmacy: [id number], 1 tabs Oral Daily,x5 days Start Date: 05/10/14 Stop Date: 05/15/14 Status: Ordered Prevident linda, Topical, Bedtime (once a day), 0 Refill(s) Start Date: 09/22/13 Status: Ordered promethazine-codeine 6.25 mg-10 mg/5 mL oral syrup 5 mL, Oral, q4hr, as needed for cough, # 120 mL, 0 Refill(s), other reason (Rx) Start Date: 05/10/14 Stop Date: 05/25/14 Status: Ordered triamcinolone 0.1% topical cream linda, Topical, Daily, Rash, 0 Refill(s) Start Date: 09/22/13 Status: Ordered Triglide 160 mg oral tablet [...] 05/1995 Adenoidectomy 1950 Tonsillectomy 1950 Colonoscopy2 1DR ZULEIKA 88764 2010 hypertrophic polyps Social History Social History Type Response Smoking Status Never smoker Assessment and Plan Extracted from: Title: Ambulatory Patient Education Author: Bobo Hurst MD Date: 05/10/14 Family Medicine Fever, Adult A fever is a temperature of 100.4 F (38 C) or above. HOME CARE Take fever medicine as told by your doctor. Do not take aspirin for fever if you are younger than 19 years of age. If you are given antibiotic medicine, take it as told. Finish the medicine even if you start to feel better. Rest. Drink enough fluids to keep your pee (urine ) clear or pale yellow. Do not drink alcohol. Take a bath or shower with room temperature water. Do not use ice water or alcohol sponge baths. Wear lightweight, loose clothes. GET HELP RIGHT AWAY IF: You are short of breath or have trouble breathing. You are very weak. You are dizzy or you pass out (faint ). You are very thirsty or are making little or no urine. You have new pain. You throw up (vomit ) or have watery poop (diarrhea ). You keep throwing up or having watery poop for more than 1 to 2 days. You have a stiff neck or light bothers your eyes. You have a skin rash. You have a fever or problems (symptoms ) that last for more than 2 to 3 days. You have a fever and your problems quickly get worse. You keep throwing up the fluids you drink. You do not feel better after 3 days. You have new problems. MAKE SURE YOU: Understand these instructions. Will watch your condition. Will get help right away if you are not doing well or get worse. Document Released: 12/03/2008 Document Revised: 05/18/2012 Document Reviewed: [employer] Patient Information 2014 [employer]. No follow up information was provided. Extracted from: Title: Office Visit Note Author: Bobo Hurst MD Date: 05/10/14 Assessment/Plan Acute URI Zpack and prednisone 20mg po daily for five days was given. Chronic kidney disease stage 3 (disorder) This issue is stable and appropriate refills, lab, and f/u have been discussed. Coronary arteriosclerosis (disorder) This issue is stable and appropriate refills, lab, and f/u have been discussed. Cough Phen w/cod. May cause sedation. F/U with PCP if not improving. Orders: predniSONE, 1 tabs, Oral, Daily, X 5 days, # 5 tabs, 0 Refill(s), Pharmacy: [id number], 1 tabs Oral Daily,x5 days promethazine-codeine, 5 mL, Oral, q4hr, as needed for cough, # 120 mL, 0 Refill(s), other reason (Rx)
--- OUTSIDE RECORDS SUMMARY | 2016-07-01 10:49 | XMS REPORT | Referral Summary ---
Author Author [facility], [facility] Organization [facility] Address Unknown Phone Unavailable Care Team Providers Care Dough Catcher Name Role Phone Deena Juárez Primary Care Physician [phone] Encounter Date(s): 10/13/15 - 10/13/15 [facility] [address] [place] [address] Discharge Diagnosis: Coronary arteriosclerosis Discharge Diagnosis: Gastroesophageal reflux disease Discharge Diagnosis: Dyslipidemia Discharge Diagnosis: Degenerative joint disease involving multiple joints Discharge Disposition: 01-Home or Self Care Attending Physician: Tino Juárez MD Admitting Physician: Tino Juárez MD Vital Signs Most recent to 1 oldest [Reference Range]: Temperature Tympanic 36.8 degC [36.6-38.1 degC] (10/13/15 8:47 AM) Peripheral Pulse 56 bpm Rate [60-100 bpm] *LOW* (10/13/15 8:47 AM) Blood Pressure 118/60 mmHg [90-140/60-90 mmHg] (10/13/15 8:47 AM) SpO2 98 % (10/13/15 8:47 AM) Problem List Condition Effective Dates Status [...] med) Shoulder Active tendinitis(Confirmed ) 1Hospitalization- at [place] 2Dr. Rekendrick S/P AMI Allergies, Adverse Reactions, Alerts No Known Allergies Medications aspirin 325 mg oral tablet 1 tabs, Oral, Daily, 0 Refill(s) Start Date: 09/21/13 Status: Ordered finasteride 5 mg oral tablet 5 mg 1 tabs, Oral, Daily, # 90 tabs, 4 Refill(s), Pharmacy: [facility], 1 tabs Oral Daily Start Date: 11/18/14 Status: Ordered glucosamine 1 tabs, Oral, Daily, 0 Refill(s) Start Date: 09/21/13 Status: Ordered Lipitor 40 mg oral tablet 40 mg 1 tabs, Oral, Bedtime (once a day), # 90 tabs, 0 Refill(s), Pharmacy: [facility], 1 tabs Oral Bedtime (once a day) Start Date: 08/21/15 Status: Ordered meloxicam 15 mg oral tablet 15 mg 1 tabs, Oral, Daily, # 30 tabs, 0 Refill(s), [id number], 1 tabs Oral Daily Start Date: 07/26/15 [...] [facility] Start Date: 08/14/15 Status: Ordered nystatin 100,000 units/g topical powder 1 linda, Topical, BID, # 15 g, 1 Refill(s), Pharmacy: [facility] Start Date: 12/05/14 Stop Date: 12/06/15 Status: Ordered Prevident linda, Topical, Bedtime (once a day), 0 Refill(s) Start Date: 09/22/13 Status: Ordered triamcinolone 0.1% topical cream 1 linda, Topical, BID, # 30 g, 2 Refill(s), Pharmacy: [facility] Start Date: 08/21/15 Status: Ordered [...] Tonsillectomy 1950 Colonoscopy3 1patient reports 2[place] [address]1986 2010 hypertrophic polyps Social History Social History Type Response Smoking Status Never smoker Assessment and Plan Extracted from: Title: Ambulatory Patient Education Author: Tino Juárez MD Date: Family Medicine Cholesterol Cholesterol is a fat. Your body needs a small amount of cholesterol. Cholesterol may build up in your blood vessels. This increases your chance of having a heart attack or stroke. You cannot feel your cholesterol levels. The only way to know your cholesterol level is high is with a blood test. Keep your test results. Work with your doctor to keep your cholesterol at a good level. WHAT DO THE TEST RESULTS MEAN? Total cholesterol is how much cholesterol is in your blood. LDL is bad cholesterol. This is the type that can build up. You want LDL to be low. HDL is good cholesterol. It cleans your blood vessels and carries LDL away. You want HDL to be high. Triglycerides are fat that the body can burn for energy or store. WHAT ARE GOOD LEVELS OF CHOLESTEROL? Total cholesterol below 200. LDL below 100 for people at risk. Below 70 for those at very high risk. HDL above 50 is good. Above 60 is best. Triglycerides below 150. HOW CAN I LOWER MY CHOLESTEROL? Diet. Follow your diet programs as told by your doctor. Choose fish, white meat chicken, roasted turkey, or baked turkey. Try not to eat red meat, fried foods, or processed meats such as sausage and lunch meats. Eat lots of fresh fruits and vegetables. Choose whole grains, beans, pasta, potatoes, and cereals. Use only small amounts of olive, corn, or canola oils. Try not to eat butter, mayonnaise, shortening, or palm kernel oils. Try not to eat foods with trans fats. Drink skim or nonfat milk. Eat low-fat or nonfat yogurt and cheeses. Try not to drink whole milk or cream. Try not to eat ice cream, egg yolks, and full- fat cheeses. Healthy desserts include dev food cake, anu snaps, animal crackers, hard candy, popsicles, and low-fat or nonfat frozen yogurt. Try not to eat pastries, cakes, pies, and cookies. Exercise. Follow your exercise programs as told by your doctor. Be more active. You can try gardening, walking, or taking the stairs. Ask your doctor about how you can be more active. Medicine. Take medicine as told by your doctor. This information is not intended to replace advice given to you by your health care provider. Make sure you discuss any questions you have with your health care provider. Document Released: 05/23/2009 Document Revised: 03/17/2015 Document Reviewed: [employer] Patient Information 2016 [employer]. No follow up information was provided. Extracted from: Title: Office Visit Note Author: Tino Juárez MD Date: 10/13/15 Assessment/Plan 1.Coronary arteriosclerosis, Atherosclerotic heart disease of [place] coronary artery without angina pectoris Chronic relatively stable no signs of angina. He does continue to follow- up with Dr. Morales his inventory coordinator routinely. No changes in current treatment at this timefollow-up in 6 months. Ordered: Office Visit Level 4 Est 57333 2.Degenerative joint disease involving multiple joints, Polyosteoarthritis , unspecified Chronic stable no change in treatment forsymptoms at this timefollow-up in 6 months. Ordered: Office Visit Level 4 Est 73736 3.Gastroesophageal reflux disease, Gastro-esophageal reflux disease without esophagitis Chronic and stable no change in current treatment recommended. Ordered: Office Visit Level 4 Est 54786 4.Dyslipidemia, Hyperlipidemia, unspecified Chronic stable recent laboratory studies reviewed and look good. No change in current treatment is recommended. Recheck in 6 months. Ordered: Office Visit Level 4 Est 34080
--- OUTSIDE RECORDS SUMMARY | 2016-07-01 10:49 | XMS REPORT | Referral Summary ---
Author Author [facility] Organization [facility] Address Unknown Phone Unavailable Care Team Providers Care Hull Outfit Supervisor Name Role Phone Deena Juárez Primary Care Physician [phone] Encounter [facility] [id number] Date(s): 05/19/15 - 05/19/15 [facility] D[facility]at[facility] [address] [place] [id number] Discharge Diagnosis: Actinic keratoses Discharge Diagnosis: Capillary hemangioma Discharge Diagnosis: Intertrigo Discharge Disposition: 01-Home or Self Care Attending Physician: Eddi Mejia MD Admitting Physician: Eddi Mejia MD Referring Physician: Tino Juárez MD Vital Signs No data available for this [...] med) Shoulder Active tendinitis(Confirmed ) 1Hospitalization- at [place] 2Dr. Reusser S/P AMI Allergies, Adverse Reactions, Alerts No Known Medication Allergies Medications aspirin 325 mg oral tablet 1 tabs, Oral, Daily, 0 Refill(s) Start Date: 09/21/13 Status: Ordered finasteride 5 mg oral tablet 5 mg 1 tabs, Oral, Daily, # 90 tabs, 4 Refill(s), Pharmacy: [facility], 1 tabs Oral Daily Start [...] 90 tabs, 3 Refill(s), Pharmacy: [facility], 1 tabs Oral Daily,x90 days Start Date: [...] Diagnosis Body Site Destruction (eg, laser surgery, 05/19/15 electrosurgery, cryosurgery, chemosurgery, surgical curettement), premalignant lesions (eg, actinic keratoses); first lesion Destruction (eg, laser surgery, 05/19/15 electrosurgery, cryosurgery, chemosurgery, surgical curettement), premalignant lesions (eg, actinic keratoses); second through 14 lesions, each (List separately in addition to code for first lesion) TURP - Transurethral resection of prostate1 02/25/13 CABG - Coronary artery bypass graft 05/1995 Adenoidectomy 1950 Tonsillectomy 1950 Colonoscopy2 1DR [place] 43643 2010 hypertrophic polyps Social History Social History Type Response Smoking Status Never smoker Assessment and Plan Extracted from: Title: Office Visit Note Author: Eddi Mejia MD Date: 05/19/15 Assessment/Plan Actinic keratoses Capillary hemangioma Intertrigo
--- OUTSIDE RECORDS SUMMARY | 2016-07-01 10:49 | XMS REPORT | Referral Summary ---
Author Author [facility] [place], [facility] Organization [facility] Address Unknown Phone Unavailable Care Team Providers Care Commodities Requirements Analyst Name Role Phone Deena Juárez Primary Care Physician [phone] Encounter VC Date(s): 10/05/14 - 10/05/14 [facility] [place] [address] [place] [address] Discharge Diagnosis: Impotence of organic origin Discharge Diagnosis: Gastroesophageal reflux disease Discharge Diagnosis: Degenerative joint disease involving multiple joints Discharge Diagnosis: Coronary arteriosclerosis Discharge Disposition: 01-Home or Self Care Attending Physician: Tino Juárez MD Admitting Physician: Tino Juárez MD Vital Signs Most recent to 1 oldest [Reference Range]: Temperature Tympanic 36.4 degC [36.6-38.1 degC] *LOW* (10/05/14 3:34 PM) Peripheral Pulse 60 bpm Rate [60-100 bpm] (10/05/14 3:34 PM) Respiratory Rate 16 br/min [14-20 br/min] (10/05/14 3:34 PM) Blood Pressure 122/68 mmHg [90-140/60-90 mmHg] (10/05/14 3:34 PM) Problem List Condition Effective Dates Status Health Status Informant 2 Vessel BUTLER to 1995 Resolved LAD(Confirmed) Allergic rhinitis Active (disorder)(Confirmed ) Allergic Resolved rhinitis(Confirmed) Allergies(Confirmed) Resolved Anxiety(Confirmed)1 Resolved Anxiety state Active [...] med) Shoulder Active tendinitis(Confirmed ) 1[facility] [place] [facility]P AMI Allergies, Adverse Reactions, Alerts No Known Medication Allergies Medications aspirin 325 mg oral tablet 1 tabs, Oral, Daily, 0 Refill(s) Start Date: 09/21/13 Status: Ordered finasteride 5 mg oral tablet 5 mg 1 tabs, Oral, Daily, # 90 tabs, 4 Refill(s), Pharmacy: [facility], 1 tabs Oral Daily Start Date: 11/18/14 Status: Ordered glucosamine 1 tabs, Oral, Daily, 0 Refill(s) Start Date: 09/21/13 Status: Ordered Lipitor 40 mg oral tablet 1 tabs, Oral, Bedtime (once a day), fax to [facility], # 90 tabs, 3 Refill(s) Start Date: 01/31/14 Status: Ordered multivitamin Daily, [...] 05/1995 Adenoidectomy 1950 Tonsillectomy 1950 Colonoscopy2 1DR [facility] [address] 2009 hypertrophic polyps Social History Social History Type Response Smoking Status Never smoker Assessment and Plan Extracted from: Title: Ambulatory Patient Education Author: Tino Juárez MD Date: Family Medicine Gastroesophageal Reflux Disease, Adult Gastroesophageal reflux disease [...] and esophagus. TREATMENT Your caregiver may recommend opab-iki-mkeqfpo or prescription medicines to help decrease acid [...] mint flavorings. Garlic and onions. Spicy foods. Robbins fruits, such as oranges, toni, or limes. [...] Extra pillows will not help. Only take zzgi-oda-upbjjha or prescription medicines for pain, discomfort, or fever as directed by your caregiver. [...] doing well or get worse. Document Released: 12/04/2005 Document Revised: 05/18/2012 Document Reviewed: ExitCare Patient Information 2015 [employer]. This information is not intended to replace advice given to you by your health care provider. Make sure you discuss any questions you have with your health care provider. No follow up information was provided. Extracted from: Title: Office Visit Note Author: Tino Juárez MD Date: 10/05/14 Assessment/Plan Coronary arteriosclerosis This appears to be stable. No signs of ischemia. He does follow with Dr. Morales. I recommended a six-month follow-up here. If he's having recurrent chest pain he should let us now. Ordered: Office Visit Level 4 Est 26404 Degenerative joint disease involving multiple joints Chronic stable no change in current treatment. Ordered: Office Visit Level 4 Est 80206 Gastroesophageal reflux disease Chronic stable continue current medications without change. Ordered: Office Visit Level 4 Est 61343 Impotence of organic origin Chronic stable and continued use Viagra as needed. Ordered: Office Visit Level 4 Est 54751 Orders: triamcinolone topical, 1 linda, Topical, BID, # 30 g, 2 Refill(s), [facility]acy: [facility] Irritant dermatitis Triamcinolone cream as needed.
--- OUTSIDE RECORDS SUMMARY | 2016-07-01 10:49 | XMS REPORT | Referral Summary ---
Author Author [facility], [facility] Organization [facility] Address Unknown Phone Unavailable Care Team Providers Care Linecasting Machine Keyboard Operator Name Role Phone Deena Juárez Primary Care Physician [phone] Encounter VC Date(s): 04/07/15 - 04/07/15 [facility] [place] [address] [place] [address] Discharge Diagnosis: Benign prostatic hypertrophy Discharge Diagnosis: High cholesterol Discharge Diagnosis: Anxiety state Discharge Diagnosis: Coronary arteriosclerosis Discharge Disposition: 01-Home or Self Care Attending Physician: Tino Juárez MD Admitting Physician: Tino Juárez MD Vital Signs Most recent to 1 oldest [Reference Range]: Temperature Tympanic 36.5 degC [36.6-38.1 degC] *LOW* (04/07/15 4:10 PM) Peripheral Pulse 60 bpm Rate [60-100 bpm] (04/07/15 4:10 PM) Respiratory Rate 16 br/min [14-20 br/min] (04/07/15 4:10 PM) Blood Pressure 126/70 mmHg [90-140/60-90 mmHg] (04/07/15 4:10 PM) Problem List Condition Effective Dates Status [...] med) Shoulder Active tendinitis(Confirmed ) 1Hospitalization- at [place] 2Dr. [facility] S/P AMI Allergies, Adverse Reactions, Alerts No Known Medication Allergies Medications aspirin 325 mg oral tablet 1 tabs, Oral, Daily, 0 Refill(s) Start Date: 09/21/13 Status: Ordered finasteride 5 mg oral tablet 5 mg 1 tabs, Oral, Daily, # 90 tabs, 4 Refill(s), Pharmacy: [facility], 1 tabs Oral Daily Start [...] # 30 g, 2 Refill(s), Pharmacy: [facility] Start Date: 10/05/14 Status: Ordered Triglide 160 [...] Adenoidectomy 1950 Tonsillectomy 1950 Colonoscopy2 1DR [place] [address] 2010 hypertrophic polyps Social History Social History Type Response Smoking Status Never smoker Assessment and Plan Extracted from: Title: Ambulatory Patient Education Author: Tino Juárez MD Date: Family Medicine Fat and Cholesterol Control Diet Your diet has an affect on your fat and cholesterol levels in your blood and organs. Too much fat and cholesterol in your blood can affect your: Heart. Blood vessels (arteries, veins). Gallbladder. Liver. Pancreas. CONTROL FAT AND CHOLESTEROL WITH DIET Certain foods raise cholesterol and others lower it. It is important to replace bad fats with other types of fat. Do not eat: Fatty meats, such as hot dogs and salami. Stick margarine and some tub margarines that have "partially hydrogenated oils" in them. Baked goods, such as cookies and crackers that have "partially hydrogenated oils" in them. Saturated tropical oils, such as coconut and palm oil. Eat the following foods: Round or loin cuts of red meat. Chicken (without skin). Fish. Veal. Ground turkey breast. Shellfish. Fruit, such as apples. Vegetables, such as broccoli, potatoes, and carrots. Beans, peas, and lentils (legumes). Grains, such as barley, rice, couscous, and bulgar wheat. Pasta (without cream sauces). Look for foods that are nonfat, low in fat, and low in cholesterol. FIND FOODS THAT ARE LOWER IN FAT AND CHOLESTEROL Find foods with soluble fiber and plant sterols (phytosterol). You should eat 2 grams a day of these foods. These foods include: Fruits. Vegetables. Whole grains. Dried beans and peas. Nuts and seeds. Read package labels. Look for low-saturated fats, trans fat free, low-fat foods. Choose cheese that have only 2 to 3 grams of saturated fat per ounce. Use heart-healthy tub margarine that is free of trans fat or partially hydrogenated oil. Avoid buying baked goods that have partially hydrogenated oils in them. Instead, buy baked goods made with whole grains (whole-wheat or whole oat flour) . Avoid baked goods labeled with "flour" or "enriched flour." Buy non-creamy canned soups with reduced salt and no added fats. PREPARING YOUR FOOD Broil, bake, steam, or roast foods. Do not brunner food. Use non-stick cooking sprays. Use lemon or herbs to flavor food instead of using butter or stick margarine. Use nonfat yogurt, salsa, or low-fat dressings for salads. LOW-SATURATED FAT / LOW-FAT FOOD SUBSTITUTES Meats / Saturated Fat (g) Avoid: Steak, marbled (3 oz/85 g) / 11 g. Choose: Steak, lean (3 oz/85 g) / 4 g. Avoid: Hamburger (3 oz/85 g) / 7 g. Choose: Hamburger, lean (3 oz/85 g) / 5 g. Avoid: Ham (3 oz/85 g) / 6 g. Choose: Ham, lean cut (3 oz/85 g) / 2.4 g. Avoid: Chicken, with skin, dark meat (3 oz/85 g) / 4 g. Choose: Chicken, skin removed, dark meat (3 oz/85 g) / 2 g. Avoid: Chicken, with skin, light meat (3 oz/85 g) / 2.5 g. Choose: Chicken, skin removed, light meat (3 oz/85 g) / 1 g. Dairy / Saturated Fat (g) Avoid: Whole milk (1 cup) / 5 g. Choose: Low-fat milk, 2% (1 cup) / 3 g. Choose: Low-fat milk, 1% (1 cup) / 1.5 g. Choose: Skim milk (1 cup) / 0.3 g. Avoid: Hard cheese (1 oz/28 g) / 6 g. Choose: Skim milk cheese (1 oz/28 g) / 2 to 3 g. Avoid: Cottage cheese, 4% fat (1 cup) / 6.5 g. Choose: Low-fat cottage cheese, 1% fat (1 cup) / 1.5 g. Avoid: Ice cream (1 cup) / 9 g. Choose: Sherbet (1 cup) / 2.5 g. Choose: Nonfat frozen yogurt (1 cup) / 0.3 g. Choose: Frozen fruit bar / trace. Avoid: Whipped cream (1 tbs) / 3.5 g. Choose: Nondairy whipped topping (1 tbs) / 1 g. Condiments / Saturated Fat (g) Avoid: Mayonnaise (1 tbs) / 2 g. Choose: Low-fat mayonnaise (1 tbs) / 1 g. Avoid: Butter (1 tbs) / 7 g. Choose: Extra light margarine (1 tbs) / 1 g. Avoid: Coconut oil (1 tbs) / 11.8 g. Choose: Blanco oil (1 tbs) / 1.8 g. Choose: [place] oil (1 tbs) / 1.7 g. Choose: Safflower oil (1 tbs) / 1.2 g. Choose: [place] oil (1 tbs) / 1.4 g. Choose: Soybean oil (1 tbs) / 2.4 g . Choose: Canola oil (1 tbs) / 1 g. Document Released: 08/25/2012 Document Revised: 10/27/2013 Document Reviewed: ExitCare Patient Information 2015 [employer]. This information is not intended to replace advice given to you by your health care provider. Make sure you discuss any questions you have with your health care provider. No follow up information was provided. Extracted from: Title: Office Visit Note Author: Tino Juárez MD Date: 04/07/15 Assessment/Plan Anxiety state, Generalized anxiety disorder Chronic stable no change in treatment is recommended. I told him that I think some of his anxiety may be causing some of his bowel issuesno further treatment is recommended. Ordered: Office Visit Level 4 Est 31822 Atherosclerotic heart disease of zuni coronary artery without angina pectoris , Coronary arteriosclerosis This appears to be chronic and stable no signs of ischemia. Medications and treatments reviewed no changes are recommended currently. Ordered: Office Visit Level 4 Est 90311 Benign prostatic hypertrophy, Enlarged prostate without lower urinary tract symptoms He is mildly symptomatic with some occasional dribblingand occasional incontinence. He's onmedications for this. He is post surgical treatment for this. I told him that I'm not sure that there is much more that can be done. Continue current treatment. Ordered: Office Visit Level 4 Est 20571 High cholesterol, Pure hypercholesterolemia Laboratory studies from last September reviewed no changes are recommended. I suggested a six-month follow-upwith fasting lab that time. Ordered: Office Visit Level 4 Est 98683
--- OUTSIDE RECORDS SUMMARY | 2016-07-01 10:49 | XMS REPORT | Referral Summary ---
Author Author [facility] [place], [facility] Organization [facility] Address Unknown Phone Unavailable Care Team Providers Care Action Installer Name Role Phone Deena Juárez Primary Care Physician [phone] Encounter VC Date(s): 08/14/15 - 08/14/15 [facility] [address] [place] [address] Discharge Diagnosis: Tinea corporis Discharge Diagnosis: Piriformis syndrome Discharge Diagnosis: Acute sinusitis Discharge Diagnosis: Paronychia of finger Discharge Disposition: 01-Home or Self Care Attending Physician: Tino Juárez MD Admitting Physician: Tino Juárez MD Vital Signs Most recent to 1 oldest [Reference Range]: Temperature Tympanic 36.6 degC [36.6-38.1 degC] (08/14/15 3:41 PM) Peripheral Pulse 56 bpm Rate [60-100 bpm] *LOW* (08/14/15 3:41 PM) Respiratory Rate 18 br/min [14-20 br/min] (08/14/15 3:41 PM) Blood Pressure 134/68 mmHg [90-140/60-90 mmHg] (08/14/15 3:41 PM) Problem List Condition Effective Dates Status [...] med) Shoulder Active tendinitis(Confirmed ) 1[facility] [place] [facility] Allergies, Adverse Reactions, Alerts No Known Allergies Medications aspirin 325 mg oral tablet 1 tabs, Oral, Daily, 0 Refill(s) Start Date: 09/21/13 Status: Ordered Bactrim DS 800 mg-160 mg oral tablet 1 tabs, Oral, BID, X 7 days, # 14 tabs, 0 Refill(s), Pharmacy: [id number] Start Date: 08/14/15 Stop Date: 08/21/15 Status: Ordered finasteride 5 mg oral tablet 5 mg 1 tabs, Oral, Daily, # 90 tabs, 4 Refill(s), Pharmacy: [facility], 1 tabs Oral Daily Start Date: 11/18/14 Status: Ordered glucosamine 1 tabs, Oral, Daily, 0 Refill(s) Start Date: 09/21/13 Status: Ordered Lipitor 40 mg oral tablet 40 mg 1 tabs, Oral, Bedtime (once a day), fax to [facility], # 90 tabs, 3 Refill( s), [facility]: [facility], 1 tabs Oral Bedtime (once a day),Instr:fax to [facility] Start Date: 04/19/15 Status: Ordered meloxicam 15 mg oral tablet 15 mg 1 tabs, Oral, Daily, # 30 tabs, 0 Refill(s), Pharmacy: [id number], 1 tabs Oral Daily Start [...] Tonsillectomy 1950 Colonoscopy3 1patient reports 2DR [place] [address] 2010 hypertrophic polyps Social History Social History Type Response Smoking Status Never smoker Assessment and Plan Extracted from: Title: Office Visit Note Author: Tino Juárez MD Date: 08/14/15 Assessment/Plan 1.Paronychia of finger, Cellulitis of left finger I've recommended Bactrim DS 1 by mouth twice a day 1 week. Drainage is good and discussed that with him. Culture was reviewed andstaffed grown out is sensitive. If not improving he'll let me now. Ordered: Office Visit Level 3 Est 22615 2.Piriformis syndrome, Lesion of sciatic nerve, right lower limb Restart meloxicam for an additional 10-14 days. If symptoms don't completely clear he'll let us know. Ordered: Office Visit Level 3 Est 21450 3.Tinea corporis, Tinea corporis Nystatin powder ordered to be used as needed. Ordered: Office Visit Level 3 Est 09930 4.Acute sinusitis, Acute pansinusitis, unspecified We'll see if the Bactrim will clear his sinuses as well. You posted on how he's doing. Ordered: Office Visit Level 3 Est 72166 Orders: nystatin topical, 1 linda, Topical, BID, # 60 g, 0 Refill(s), [facility]: [facility] sulfamethoxazole-trimethoprim, 1 tabs, Oral, BID, X 7 days, # 14 tabs, 0 Refill(s), Pharmacy: [id number]
--- OUTSIDE RECORDS SUMMARY | 2016-07-01 10:49 | XMS REPORT | Referral Summary ---
Author Organization Unknown Address Unknown Phone Unavailable Care Team Providers Care External Grinder Tender Name Role Phone Padilla Mobley JR Primary Care Physician [phone] Encounter VC Date(s): 04/04/14 - 04/04/14 [facility], [address] [address] [place], [place] [address] Discharge Diagnosis: Tenosynovitis of thumb Discharge Disposition: Home or Self Care Attending Physician: Chris Anna MD Admitting Physician: Chris Anna MD Vital Signs No data available for [...] med) Shoulder Active tendinitis(Confirmed ) 1Hospitalization- at [place] 2Dr. Cora S/P AMI Allergies, Adverse Reactions, Alerts No Known Medication Allergies Medications aspirin 325 mg oral tablet 1 tabs, Oral, Daily, 0 Refill(s) Start Date: 09/21/13 Status: Ordered ATORVASTATIN TABS 40MG See Instructions, TAKE 1 TABLET DAILY, # 90 tabs, 3 Refill(s), eRx: [facility], TAKE 1 TABLET DAILY Special Instructions: TAKE 1 TABLET DAILY Start Date: 10/18/13 Status: Ordered clindamycin 1% topical lotion 1 linda, Topical, BID, # 60 mL, 4 Refill(s), Pharmacy: [id number] Start Date: 11/26/13 Stop Date: 02/04/14 Status: Ordered finasteride 5 mg oral tablet See Instructions, TAKE 1 TABLET DAILY, # 90 tabs, 2 Refill(s), Pharmacy: [facility], TAKE 1 TABLET DAILY Special [...] 0 Refill(s) Start Date: 09/21/13 Status: Ordered OMEPRAZOLE CAPS 20MG See Instructions, TAKE 1 CAPSULE DAILY BEFORE A MEAL, # 90 caps, 10 Refill(s), eRx: [facility], TAKE 1 CAPSULE DAILY BEFORE A MEAL Special Instructions: TAKE 1 CAPSULE DAILY BEFORE A MEAL Start Date: 11/22/13 Status: Ordered Prevident linda, Topical, Bedtime (once a day), 0 Refill(s) Start Date: 09/22/13 Status: Ordered triamcinolone 0.1% topical cream linda, Topical, Daily, Rash, 0 Refill(s) Start Date: 09/22/13 Status: Ordered Triglide 160 mg oral tablet 1 tabs, Oral, Daily, # 90 tabs, 3 Refill(s), Pharmacy: [facility], 1 tabs Oral Daily Start Date: 01/17/14 Status: Ordered Viagra 50 mg oral tablet [...] Adenoidectomy 1950 Tonsillectomy 1950 Colonoscopy2 1[place] [address] 2010 hypertrophic polyps Social History Social History Type Response Smoking Status Never smoker Assessment and Plan Extracted from: Title: Office Visit Note Author: Chris Anna MD Date: 04/04/14 Assessment/Plan Tenosynovitis of thumb Flexor tendon sheath of the thumb is injected with local anesthetic and steroid. He is to report his progress. Ordered: Office Visit Level 3 Est 91588 Return to Clinic Referrals to Other Providers Referred by: Chris Anna MD
[2016-07-01 11:12] LABS: BASOPHILS % (AUTO) 0.5 % (0-2); EOSINOPHILS # (AUTO) 0.2 T/MM3 (0-0.5); EOSINOPHILS % (AUTO) 5.4 % (0-4); HCT - HEMATOCRIT 39.7 % (41-53); IMMATURE GRANULOCYTE # (AUTO) 0.01 T/MM3 (0.00-0.03); IMMATURE GRANULOCYTE % (AUTO) 0.3 % (0.0-0.5); LYMPHOCYTES # (AUTO) 1.6 T/MM3 (1-4.8); LYMPHOCYTES % (AUTO) 41.3 % (23-45); MEAN CORPUSCULAR HGB CONC(MCHC 32.7 GM/DL (31-37); MEAN CORPUSCULAR VOLUME 91.7 UM3 (80-100); MEAN PLATELET VOLUME 10.3 UM3 (9.4-12.4); MONOCYTES # (AUTO) 0.6 T/MM3 (0-0.8); MONOCYTES % (AUTO) 14.7 % (0-9.0); NEUTROPHILS #(AUTO)-ABSOLUTE 1.5 T/MM3 (1.8-7.7); NEUTROPHILS % (AUTO) 37.8 % (33-66); RED BLOOD COUNT 4.33 M/MM3 (4.50-5.90); WBC - WHITE BLOOD COUNT 3.9 T/MM3 (4.5-11.0)
[2016-07-01] MEDS ORDERED: BUPIVACAINE 0.25%/EPI 1:200,000 30ml SDV ONE (11:13)
[2016-07-01 11:22] LABS: ALBUMIN 3.9 G/DL (3.5-5.0); ALBUMIN/GLOBULIN RATIO 1.4 RATIO (1.1-2.2); ALKALINE PHOSPHATASE 48 U/L (38-126); ALT (SGPT) 38 U/L (21-72); ANION GAP 11 MEQ/L (5-15); AST (SGOT) 43 U/L (17-59); BUN/CREATININE RATIO 22 RATIO (6-26); CALCIUM 9.1 MG/DL (8.4-10.2); CHLORIDE 109 MEQ/L (98-107); CO2 - CARBON DIOXIDE 26 MEQ/L (22-30); CREATININE 1.1 MG/DL (0.8-1.5); GLOMERULAR FILTRATION RATE 66; GLUCOSE 98 MG/DL (75-110); POTASSIUM 3.5 MEQ/L (3.6-5); SODIUM 146 MEQ/L (134-144); TOTAL PROTEIN 6.6 G/DL (6.3-8.2)
[2016-07-01] MEDS ORDERED: PROPOFOL 200mg 20 ML IV ONE (11:38)
[2016-07-01] MEDS ORDERED: PROPOFOL 500mg 50 ML IV ONE ×2 (11:38→13:20)
--- NOTE | 2016-07-01 12:24 | ANESPREOP ---
Anesthesia Record Date and Time DATE: 07/01/16 TIME: 11:33 Pre-Op Diagnosis Right Inguinal hernia Proposed Surgical Procedure RT ING HERNIA REPAIR NPO since: Midnight Allergies: Coded Allergies: NKDA (Verified Allergy, Unknown, 01/25/13) Uncoded Allergies: SILK SUTURE (Adverse Reaction, Unknown, BODY REJECTED SUTURES, 05/22/12) Ht/Wt/BMI Height: 5 ' 6.50 " Weight: 78.300 kg BMI: 27.4 kg/m2 Vital Signs Date Time Temp Pulse Resp B/P Pulse Ox O2 Delivery O2 Flow Rate FiO2 07/01/16 10:58 97.6 52 14 143/74 99 Room Air Medications Aspirin (Aspirin) 325 Mg Tablet, 325 MG PO HS, (Reported) Last Taken: on 06/30/162029 Atorvastatin Calcium (Lipitor) 40 Mg Tablet, 40 MG PO HS, (Reported) Last Taken: on 06/30/162029 Fenofibrate Nanocrystallized (Triglide) 160 Mg Tablet, 1 TAB PO DAILY, (Reported) Last Taken: on 06/30/162029 Finasteride (Finasteride) 5 Mg Tablet, 5 MG PO HS, (Reported) Last Taken: on 06/30/162029 Hydrocodone/Acetaminophen (Lortab 5-325 mg Tablet) 1 Each Tablet, 1-2 TAB PO Q3H PRN for PAIN, (Reported) Last Taken: on 06/09/16 Multivitamins (Multivitamin) 1 Udcap Capsule, 1 UDCAP PO DAILY, (Reported) Last Taken: on 06/29/162029 Nitroglycerin (Nitroglycerin) 0.4 Mg Tab.subl, 0.4 MG SL PRN, (Reported) Last Taken: on Unknown Date & Time Nystatin (Nystatin) Unknown Strength Tablet, Unknown Dose TP BID, (Reported) Last Taken: on 06/29/162029 Sildenafil Citrate (Viagra) 50 Mg Tablet, 1 TAB PO PRN, (Reported) Last Taken: on 06/29/162029 Triamcinolone (Triamcinolone Acetonide) 15 Applic/15 G Cr, 1 APPLIC TOP BID, (Reported) Last Taken: on Unknown Date & Time Vitamin E Mixed (Vitamin E) Unknown Strength Tablet, Unknown Dose, (Reported) Last Taken: on Unknown Date & Time Currently on Beta Shay: No Medical/Surgical History Anesthesia PMH: Reports: *Angina (CP AFTER CABG IN APR 2016), *[place] (1995 - BYPASS X2, 1998 - HEART CATH), Arthritis (OA IN FINGERS), Cancer (SKIN CA ON REMOVED 2014), Hyperlipidemia, Reflux, Renal Disease (STAGE 3 CKD - PATIENT DENIES), Denies: *Diabetes, *Dyspnea, *Hypertension, Anesthesia Reactions, Asthma, Blood Transfusion Reac, CHF, COPD, CVA/Stroke/TIA, Clotting Problems, Deep Vein Thrombosis, Glaucoma, Hepatitis, Hiatal Hernia, Malignant Hyperthermia , Pneumonia, Seizures, Sleep Apnea, Thyroid Disease, Tuberculosis (SCAR TISSUE ON LUNG-PROB FROM SECONDARY SMOKE) Smoking Status: Former smoker Has pt. smoked today?: No Use Chewing Tobacco?: No Second Hand Exposure: No Substance Use Type: does not use Alcohol Intake: none Past Surgical History Orthopedic Surgeries: No Abdominal Surgeries: Yes - EXPL LAP-APPY; UMBILICAL HERNIA; EXPL LAP FOR STITCH REJ Genitourinary Surgeries: Yes - TURP Cardiac Surgeries: Yes - 2 VESSEL BUTLER TO LAD-CABG - APR 2016 Endocrine Surgeries: No Reproductive Surgeries: No Neurological Surgeries: No Ear Surgeries: No Nose Surgeries: No Throat Surgeries: Yes - T&A Other Surgeries: Yes - COLONOSCOPY Anesthesia Adverse Reactions: FOUND none Family Hx of Anesthesia Advers: none Hx of Motion Sickness: No Other Med/Surg Hx 2nd CABG 04/29/2016. Cardiac clearance on the chart from Dr. Shepherd Pertinent Findings Laboratory Tests 07/01/16 11:06 EKG Rhythm: Sinus Bradycardia Physical Exam Respiratory: Lungs clear Cardiovascular: FOUND Regular rate, rhythm Airway Assessment Mallampati Score: II TMD: 3 Fingerbreadths Neck Extension: Fair Overall Assessment: No Airway Concerns ASA: 3 Plan Anesthesia Plan: TIVA, LMA Discussion Discussed risks/options/alternatives of anesthesia and questions answered. Patient consents. Nursing pain assessment noted. Attestation Statement Prior to the delivery of any anesthetic medication, I examined the patient, developed the plan, obtained the patient's consent and discussed the risk and benefits of the procedure with the patient/guardian. CARMEN VALLADARES CRNA Jul 01, 2016 11:35
[2016-07-01] MEDS ORDERED: LIDOCAINE JELLY 2% 30ml TUBE ONE (12:55)
[2016-07-01] MEDS ORDERED: FENTANYL 100mcg/2ml INJECTION ONE (13:00)
[2016-07-01] MEDS ORDERED: DOCU100T10 PO (13:45)
[2016-07-01] MEDS ORDERED: HYDR-4246 PO (13:45)
[2016-07-01] MEDS ORDERED: POLY17PO6 PO (13:45)
[2016-07-01] MEDS ORDERED: LR 1,000 ML IV PRN (13:54)
[2016-07-01] MEDS ORDERED: MIDAZOLAM 2mg/2ml INJECTION IV ONE (14:45)
--- NOTE | 2016-07-01 15:10 | ANESPO ---
Post-Op Note Date 07/01/16 Time: 15:09 Status Pt Participated in Evaluation: Pt participated in person Vital Signs Date Time Temp Pulse Resp B/P Pulse Ox O2 Delivery O2 Flow Rate FiO2 07/01/16 14:34 97.2 79 18 142/71 100 Room Air Respiratory Function: Airway patent Cardiovascular Function: Regular pulse Telemetry Pattern: SR Mental Status: Alert/oriented Pain Level Intensity: 2 Hydration: Taking po fluids Complications during Recovery None apparent Follow-Up Instructions Instructions Per Surgeon CARMEN VALLADARES CRNA Jul 01, 2016 15:10
--- NOTE | 2016-07-01 15:38 | NUR ---
STATUS CATALINA COMBS INVESTIGATIVE ASSISTANT AND CARMEN VALLADARES INVESTIGATIVE ASSISTANT NOTIFIED OF PATIENT PULSE IN THE 40'S. WILL CONTINUE TO MONITOR.
--- NOTE | 2016-07-01 15:50 | NUR ---
STATUS APPOINTMENTS MADE FOR PATIENT WITH DR. CHAPIN BAPTISTE, PRIMARY CARE PHYSICIAN AND WITH DR. HERNADEZ. APPOINTMENT TIMES PLACED ON DISCHARGE PAPERWORK. PATIENT AND PATIENT SPOUSE VERBALIZE UNDERSTANDING
--- NOTE | 2016-07-01 21:14 | OPNOTEF ---
DATE OF SERVICE 07/01/2016 SURGEON Daniel Troy MD PREOPERATIVE DIAGNOSIS Right inguinal hernia. POSTOPERATIVE DIAGNOSIS Right inguinal hernia. PROCEDURES Right inguinal herniorrhaphy via mesh plug technique. ANESTHESIA TIVA/local. BRIEF HISTORY/INDICATIONS Mr. Jc is a 70-year-old gentleman who several months ago had presented to my office as a result of some discomfort within his right inguinal region. Upon examination the patient was found have a mass that extended into the right scrotum which increased upon cough and Valsalva. It was recommended to the patient that he therefore undergo an elective repair of his right inguinal hernia. During the interview process the patient had stated he was noticing some chest discomfort when he went out into the cold air. The patient was sent on for further cardiac evaluation which ultimately has led to a coronary artery bypass grafting. The patient has been deemed stable from a cardiac standpoint at this juncture in time by Cardiology. For completeness please refer to notes included in the patient's chart. FINDINGS Upon inguinal exploration the patient was found to have a large right indirect hernia sac that extended into the right hemiscrotum. A standard mesh plug inguinal herniorrhaphy was able to be completed without incident. NARRATIVE OF PROCEDURE After informed consent was obtained the patient was brought to the operative suite and placed on the table in supine position. The right inguinal region was prepped and draped in sterile fashion. Next, 0.25% Marcaine was injected just above the pubic symphysis and injected out laterally. A 4-5 cm incision was made overlying the area of analgesia. Dissection was carried down to the deep subcuticular tissues to the underlying external oblique aponeurosis. The external oblique aponeurosis was opened along the course of its fibers down to and through the external ring. The spermatic cord was mobilized off the pubic tubercle in a mediolateral fashion. A large indirect hernia sac was identified and dissected away from the cord structures and returned back through the internal ring. A large mesh plug was brought forth to the operative field and placed into the internal ring, further reducing the indirect hernia sac. The mesh plug was imbricated to the surrounding tissues by placing several simple interrupted sutures of 2-0 Prolene. Next, the mesh overlay was brought forth to the operative field and imbricated to the underlying tissues in a standard [place] fashion. First, the mesh overlay was imbricated to the pubic symphysis with 2-0 Prolene. The mesh overlay was imbricated along the shelving edge out laterally in a running fashion with 2-0 Prolene. Medially, the mesh overlay was imbricated to the underlying internal oblique and transversalis aponeurosis, also in a running fashion with 2-0 Prolene. The tail portions were cut within the mesh and allowed to envelop the cord was it exited through the internal ring. The newly created internal ring could easily accommodate a tip of a hemostat between the cord structures and the mesh itself. Additionally, it should be noted the ilioinguinal nerve was identified proximally and divided as to prevent incorporation into the mesh repair. Attention was then directed towards closure. The prior areas of dissection were inspected and found to be hemostatic. The external oblique aponeurosis was closed anterior to the cord structures. Angelica's fascia was reapproximated in a running fashion with 3-0 Vicryl. The skin was closed in a subcuticular fashion with 4-0 Monocryl. Dermabond was placed overlying the incision. The patient is in the process of awakening from his anesthetic and will be sent back to recovery room once deemed in stable condition. ARIELLA
== END 2016-07-01 16:24 | disposition home or self-care (01) ==
LOC: SCU 10:43
PROVIDERS: ATTEND Surgery
DX: K40.90 Unilateral inguinal hernia, without obstruction or gangrene, not specified as recurrent (principal); I25.10 Atherosclerotic heart disease of native coronary artery without angina pectoris; I48.91 Unspecified atrial fibrillation; N18.3 Chronic kidney disease, stage 3 (moderate); E78.5 Hyperlipidemia, unspecified; K21.9 Gastro-esophageal reflux disease without esophagitis; J30.1 Allergic rhinitis due to pollen; N40.0 Benign prostatic hyperplasia without lower urinary tract symptoms; N52.9 Male erectile dysfunction, unspecified; Z79.899 Other long term (current) drug therapy; Z79.82 Long term (current) use of aspirin; Z95.1 Presence of aortocoronary bypass graft
CPT/HCPCS: 36415; 49505; 80053; 85025; 93005; J0690; J2704; J3010; J7030; J7120